=== PATIENT | male | born 1955 | race Caucasian/White ===

== ENCOUNTER → 2025-04-12 13:25 | Outpatient (CLI) | payer OTHER, SELFPAY ==
--- NOTE | 2025-04-12 13:28 | DI.US.S_ITS ---
PROCEDURE: US ARTERIAL DUPLEX LE BI INDICATIONS: Chronic systolic heart failure, aneurysm, thrombos TECHNIQUE: Color and pulse Doppler interrogation was performed of both lower extremity arterial systems, with image documentation. COMPARISON: None. FINDINGS: Right lower extremity: Common femoral artery: 59 cm/sec, with monophasic parvus tardus flow. Deep femoral artery: 45 cm/sec, with monophasic flow. Proximal superficial femoral artery: 40 cm/sec, with monophasic parvus tardus flow. Mid superficial femoral artery: 42 cm/sec, with monophasic flow. Distal superficial femoral artery: 37 cm/sec, with monophasic flow. Popliteal artery: 26 cm/sec, with monophasic flow. Posterior tibial artery: 20 cm/sec, with monophasic flow. Anterior tibial artery/dorsalis pedis: 15 cm/sec, with monophasic flow. Panchal-scale imaging description: Monophasic parvus tardus waveforms in the common femoral and upper thigh suggest significant aorta iliac stenotic or occlusive disease. Grayscale imaging demonstrates that the imaged vessels are widely patent. IMPRESSION: Findings are consistent with significant aortoiliac stenotic or occlusive disease, resulting in monophasic parvus tardus waveforms in the common femoral and upper thigh and diffuse monophasic waveforms throughout. The imaged vessels appear widely patent by grayscale imaging. Dictated by: Lul Jung M.D. on 04/12/2025 at 22:02 Approved by: Lul Jung M.D. on 04/12/2025 at 22:05
== END ==
LOC: US 13:26
PROVIDERS: Referring Provider Internal Medicine; Visit Provider Internal Medicine
DX: I72.4 Aneurysm of artery of lower extremity (principal); I50.22 Chronic systolic (congestive) heart failure
CPT/HCPCS: 93925

== ENCOUNTER → 2025-05-09 07:41 | Outpatient (CLI) | payer OTHER, SELFPAY ==
--- NOTE | 2025-05-09 07:44 | DI.ECHO.S_ITS ---
[facility] : : [address] : : [place] : : [id number] : : Phone: [phone] Echocardiogram Report + + :Name: ALEJANDRA HILL Study Date: 05/09/2025 Height: 72 in : :[facility] ReadingLocation: Weight: 230 lb : : Gender: Male BSA: 2.3 m2 : :: 1955 Age: 69 yrs BP: 177/86 mmHg: :Reason For Study: SYSTOLIC HEART FAILURE : :Ordering Physician: HERBERTH JAMA Performed By: Aristeo Ramirez : :Referring: HERBERTH JAMA : + + Interpretation Summary 1. The left ventricular contractility is severely compromised. Estimate ejection fraction is approximate 25 to 30% with severe global hypokinesis of the inferolateral segment. Remaining segments are moderately hypokinetic mild concentric LVH. Dilated left ventricular cavity with LVEDD of 6.4 cm. 2. The right ventricle was not well-visualized. In limited views, the right ventricular contractility appears to be preserved. 3. No obvious intracardiac masses nor thrombi. 4. No hemodynamically significant pericardial effusion. 5. Low right-sided filling pressures. Conclusion: Severely compromised left ventricular systolic function. When compared with previous echocardiogram, there does appear to be a slight increase in the left ventricular cavity with presence of mild concentric left ventricular hypertrophy. Procedure: A two-dimensional transthoracic echocardiogram with color flow and Doppler was performed in limited views only. The study quality was technically adequate. Comparison is made with the echocardiogram of 08/14/2024. The patient was in normal sinus rhythm during the exam. Left Ventricle: The left ventricle is mildly dilated. Left ventricular wall thickness is mildly increased. The ejection fraction is estimated to be 25- 30%. There are regional wall motion abnormalities as specified. Great Vessels: The IVC is of normal diameter and collapses greater than 50% with a sniff. This suggests a low right atrial pressure of 3 mm Hg. MMode/2D Measurements & Calculations LVIDd: 6.4 cm IVC diam: 1.9 cm LVIDs: 6.0 cm FS: 5.7 % IVSd: 1.2 cm LVPWd: 0.98 cm LV lazar. diameter/BSA (cm/m^2): 2.8 LV sys. diameter/BSA (cm/m^2): 2.7 Reading Physician:TUSHAR
--- NOTE | 2025-05-09 07:46 | DI.US.S_ITS ---
PROCEDURE: US PERIPH VENOUS LOW EXTREM LT INDICATIONS: HISTORY OF DEEP VEIN THROMBOSIS TECHNIQUE: Real-time imaging, as well as color and pulse Doppler interrogation, were performed of the lower extremity deep veins from the inguinal ligament to the popliteal fossa, with documentation of the visualized calf veins. COMPARISON: None. FINDINGS: Occlusive thrombus is seen within the proximal femoral vein with partially occlusive thrombus in the mid to distal femoral vein. The common femoral, popliteal, and the visualized calf veins are normally compressible, and free of intraluminal thrombus. Color and pulse Doppler demonstrate normal intraluminal flow. IMPRESSION: Occlusive and nonocclusive thrombus within the left femoral vein. Concordant preliminary findings were conveyed to the treatment team by the lead project engineer at the time of the exam. Approved by: Panfilo Gonzalez M.D. on 05/09/2025 at 11:11
== END ==
PROVIDERS: Referring Provider Internal Medicine; Visit Provider Internal Medicine
DX: I50.22 Chronic systolic (congestive) heart failure (principal); I82.412 Acute embolism and thrombosis of left femoral vein
CPT/HCPCS: 93307; 93971